=== PATIENT | female | born 1955 | race Caucasian/White ===

== ENCOUNTER 2017-10-28 13:11 | Emergency (ER) | payer OTHER ==
[2017-10-28 13:56] VITALS: TEMP 98.6
[2017-10-28] MEDS ORDERED: HYDROCHLOROTHIAZIDE 25 MG TAB PO ONE (14:00)
[2017-10-28 14:04] LABS: BASOPHILS % (AUTO) 2 % (0-3); EOSINOPHILS % (AUTO) 3 % (0-9); HEMATOCRIT 43 % (35-47); HEMOGLOBIN 14.3 gm/dl (12.0-15.5); LYMPHOCYTES % (AUTO) 14.2 % (10-50); MEAN CORPUSCULAR HEMOGLOBIN 31.8 pg (27.0-32.0); MEAN CORPUSCULAR HGB CONC 33.3 gm/dl (32.0-36.0); MEAN CORPUSCULAR VOLUME 96 fL (81-99); MONOCYTES % (AUTO) 10.5 % (0-12); NEUTROPHILS % (AUTO) 70.3 % (37-80)
[2017-10-28 14:09] LABS: INR 0.89 (0.86-1.12)
[2017-10-28 14:14] LABS: ALBUMIN 3.6 gm/dl (3.4-5.0); BILIRUBIN,TOTAL 0.3 mg/dl (0.2-1.0); CARBON DIOXIDE 27.9 mEq/L (21-32); CREATININE 0.77 mg/dl (0.60-1.00); POTASSIUM 3.9 mMol/L (3.5-5.1)
[2017-10-28] MEDS ORDERED: TRAMADOL HYDROCHLORIDE 50 MG TAB PO ONE (14:20)
[2017-10-28] MEDS ORDERED: TRAMADOL HYDROCHLORIDE 50 MG TAB ONE (14:32)
[2017-10-28] MEDS ORDERED: HYDROCHLOROTHIAZIDE 25 MG TAB ONE (14:33)
[2017-10-28 19:17] VITALS: BP 173/88; PULSE 56; RESP 18; O2SAT 100
== END 2017-10-28 15:13 | disposition home or self-care (01) ==
LOC: ED 13:11
DX: R51 Headache (principal)
CPT/HCPCS: 36415; 70450; 71045; 80053; 85025; 85610; 93005; 99284; A9270-GY

== ENCOUNTER 2018-01-14 08:57 | Day surgery (SDC) | payer MEDICARE, OTHER ==
[~2018-01-14 08:57] MED LIST: LIDOCAINE HCL 1% 5 ML ONE; PROPOFOL 500 MG/50 ML EMU IV ONE
[2018-01-14 10:20] VITALS: RESP 20
[2018-01-14 10:25] VITALS: O2SAT 96
[2018-01-14 10:37] VITALS: BP 129/81; PULSE 68; TEMP 97.4
== END 2018-01-14 10:57 | disposition home or self-care (01) | DRG 951 ==
LOC: SURG 08:57
PROVIDERS: ATTEND Surgery
DX: Z12.11 Encounter for screening for malignant neoplasm of colon (principal); K57.32 Diverticulitis of large intestine without perforation or abscess without bleeding; Z86.010 Personal history of colon polyps; D12.5 Benign neoplasm of sigmoid colon; D12.3 Benign neoplasm of transverse colon
CPT/HCPCS: J2704